=== PATIENT | female | born 1995 | race Caucasian/White ===

== ENCOUNTER 2016-11-24 10:50 | Emergency (ER) | payer SELFPAY ==
[~2016-11-24] VITALS: Ht 160 cm; Wt 102.1 kg
[~2016-11-24 10:50] MED LIST: ALPRAZOLAM0.25 MG PO; AMOXIL 250250 MG/5 M PO; BIRTH CONTOL PO; CLARITIN10 MG PO; JUNEL FE 1/20 21 TAB PO; MOBIC 15MG15 MG PO; MOTRIN800 MG PO; NASONEX0.05 MG/Ac; SYMBICORT 160/41 PUF INH
[2016-11-24 10:53] VITALS: BP 150/74
[2016-11-24] MEDS ORDERED: PERIOGARD473 ML PO (11:23)
--- NOTE | 2016-11-24 11:24 | ED GENERAL ADULT ---
History of Present Illness General Chief Complaint: Foot or Ankle Injury Stated Complaint: SWOLLEN DISCOLORED BIG TOE (RT FOOT) Source: patient Exam Limitations: no limitations Vital Signs & Intake/Output Vital Signs & Intake/Output Vital Signs Date Time Temp Pulse Resp B/P B/P Pulse O2 O2 Flow FiO2 Mean Ox Delivery Rate 11/24 1053 97.1 100 18 150/74 99 Room Air Allergies Uncoded Allergies: BRASS (SWELLING 04/15/15) Reconcile Medications Alprazolam 0.25 MG TAB 1 TAB PO BID ANXIETY (Reported) Chlorhexidine Gluconate (Periogard) 0.12 % MOUTHWASH 15 ML PO BID gum swelling NORETHINDRONE-E.ESTRADIOL-IRON (Junel Fe 1 MG-20 Mcg Tablet) 1 TAB TAB 1 TAB PO DAILY CONTROL (Reported) Triage Note: PT STATES THAT SHE WOKE THOIS AM WITH THE BOTTOM OF HER R GREAT TOE DISCOLORED, PT NOTED WITH BOTTOM OF GREAT TOE DICOLORED, DENIES PAIN/INJURY. Triage Nurses Notes Reviewed? yes Onset: Abrupt Duration: day(s):, constant Timing: recent history No Modifying Factors: none : No Patient currently breastfeeds: No HPI: 21-year-old female comes into emergency room for further evaluation of her right great toe and was blue appearing. Patient reports that prior to me coming in the room she realized that yesterday she was blueberry picking and she must a step on the blueberry. She wiped her toe off and the blue discoloration disappeared. She has no complaints of her toe at this time. Patient reports that while she is here she reports that her gums have been swollen for many months intermittently. Denies any fever chills vomiting. Denies any other associated symptoms. (KATIE SON) Past History Travel History Traveled to [place] past 21 day No Medical History Any Pertinent Medical History? 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 No (KATIE SON) Review of Systems Review of Systems Constitutional: Reports: no symptoms. EENTM: Reports: no symptoms. Respiratory: Reports: no symptoms. Cardiovascular: Reports: no symptoms. GI: Reports: no symptoms. Genitourinary: Reports: no symptoms. Musculoskeletal: Reports: see HPI. Skin: Reports: see HPI. Neurological/Psychological: Reports: no symptoms. Hematologic/Endocrine: Reports: no symptoms. Immunologic/Allergic: Reports: no symptoms. All Other Systems: Reviewed and Negative (KATIE SON) Physical Exam Physical Exam General Appearance: well developed/nourished, alert, awake Head: atraumatic Eyes: Bilateral: normal appearance. Ears, Nose, Throat: normal ENT inspection, hearing grossly normal, gums mildly inflamed Neck: normal inspection Respiratory: no respiratory distress Cardiovascular: regular rate/rhythm Back: normal inspection Extremities: normal capillary refill, no edema, right great toe normal Neurologic/Psych: awake, alert, normal gait Skin: intact, normal color Core Measures ACS in differential dx? No CVA/TIA Diagnosis: No Severe Sepsis Present: No Septic Shock Present: No (KATIE SON) Progress Differential Diagnoses I considered the following diagnoses in my evaluation of the patient: Gingivitis, abscess, ischemic toe, toe fracture, lichen planus, tartar buildup, Plan of Care: 11/24/2016 12:43:21 PM Patient clinically looks well. In no apparent distress. Patient has no evidence of any type of ischemia to the toe. It looks normal. She reports that the blueberry wiped off. Initial ED EKG: none (KATIE SON) Departure Departure Disposition: HOME OR SELF CARE Condition: Stable Clinical Impression Primary Impression: Gingivitis Referrals: PATIENT HAS NO PRIMARY CARE DR (PCP/Family) Additional Instructions: use priscilla as prescribed. Follow-up with dentist. Return if any concerns worsening symptoms. Please go over all results of today's visit with your primary care doctor. Contact your primary care doctor to let them know you were here in the emergency room. There may be nonspecific findings which may not be related to your visit today here in the emergency room but may require further evaluation and chronic monitoring by your primary care doctor. If you had a laceration today the chance of foreign body always remains. You should follow-up with your primary care doctor for recheck in 3-5 days for a wound check. If you had an x-ray done there is a chance that a fracture could have been missed on initial read and you should follow-up with your primary care doctor for repeat x-rays if symptoms persist. If your blood pressure was elevated here in the emergency room please have rechecked by her primary care doctor within the next 48 hours by your primary care doctor. If you were prescribed a narcotic here in the emergency room or any type of controlled substances you're not allowed to drive while taking this medication or operate any type of heavy machinery. Narcotics can make you feel lightheaded dizziness nausea and can cause constipation. You may need to belt picker a stool softener. Thank you for choosing [facility] emergency room. Please return to the emergency room immediately if you have any other concerns worsening of symptoms. Departure Forms: Customer Survey General Discharge Information Prescriptions: Current Visit Scripts Chlorhexidine Gluconate (Periogard) 15 ML PO BID #[id number] ML (KATIE SON) PA/MATERIAL LIAISON Co-Sign Statement Statement: ED Attending supervision documentation- I saw and evaluated the patient. I have also reviewed all the pertinent lab results and diagnostic results. I agree with the findings and the plan of care as documented in the PA's/MATERIAL LIAISON's documentation. x I have reviewed the ED Record and agree with the PA's/MATERIAL LIAISON's documentation. [] Additions or exceptions (if any) to the PAs/MATERIAL LIAISON's note and plan are summarized below: [] (SERGO HOYT,TORITO) Critical Care Note Critical Care Note Critical Care Time: non-applicable (KATIE SON)
== END 2016-11-24 11:31 ==
LOC: ERH 10:50
DX: K05.10 Chronic gingivitis, plaque induced (principal)